=== PATIENT | female | born 1980 | race Caucasian/White ===

== ENCOUNTER 2018-11-12 21:01 | Emergency (ER) | payer OTHER ==
[~2018-11-12] VITALS: Ht 154.9 cm; Wt 48.5 kg
[2018-11-12] MEDS ORDERED: LANTUS SOL100 UNIT/1 SUB-Q (21:12)
[2018-11-12] MEDS ORDERED: HUMALOG100 UNIT/2 SUB-Q (21:13)
[2018-11-12] MEDS ORDERED: LITHIUM CARBON150 MG PO (21:14)
[2018-11-12] MEDS ORDERED: HYDROXYZINE HCL25 MG PO (21:15)
== END 2018-11-12 22:16 | disposition home or self-care (01) ==
LOC: ED 21:01
DX: S63.92XA Sprain of unspecified part of left wrist and hand, initial encounter (principal); S63.91XA Sprain of unspecified part of right wrist and hand, initial encounter; V48.6XXA Car passenger injured in noncollision transport accident in traffic accident, initial encounter; E10.9 Type 1 diabetes mellitus without complications; F41.9 Anxiety disorder, unspecified; F32.9 Major depressive disorder, single episode, unspecified; F17.200 Nicotine dependence, unspecified, uncomplicated; Z91.030 Bee allergy status; Z88.5 Allergy status to narcotic agent; Z79.4 Long term (current) use of insulin; Z79.899 Other long term (current) drug therapy
CPT/HCPCS: 73130; 99284-25